=== PATIENT | male | born 1960 | race Caucasian/White ===

== ENCOUNTER → 2022-03-14 | Outpatient (CLI) | payer BC | LOC: RAD 16:22 | DX: M48.07 Spinal stenosis, lumbosacral region (principal); M51.17 Intervertebral disc disorders with radiculopathy, lumbosacral region ==

== ENCOUNTER 2022-06-21 07:52 | Outpatient (RCR) | payer BC | END 2022-07-21 | disposition home or self-care (01) | LOC: PT | DX: M51.16 Intervertebral disc disorders with radiculopathy, lumbar region (principal) ==